=== PATIENT | female | born 1980 | race Caucasian/White ===

== ENCOUNTER 2016-10-17 10:21 | Emergency (ER) | payer MEDICAID ==
[2016-10-17 10:25] VITALS: BP 116/83
[2016-10-17] MEDS ORDERED: Acetaminophen 325 MG Tab PO ONE (10:42)
--- NOTE | 2016-10-17 10:58 | EDM.PDOC ---
ED HPI GENERAL MEDICAL PROBLEM - General Chief Complaint: General Stated Complaint: "thought she was going to passout" Time Seen by Provider: 10/17/16 10:40 Source of Information: Reports: Patient History Limitations: Reports: No Limitations - History of Present Illness INITIAL COMMENTS - FREE TEXT/NARRATIVE: patient states she has a headache and doesn't feel well. Mother states this has happened a few times when she went to denominational. Onset: Today, Sudden Duration: Minutes: Location: Reports: Head Severity: Mild Improves with: Reports: None Worsens with: Reports: None Associated Symptoms: Reports: No Other Symptoms Treatments CASING BUILDER: Reports: Acetaminophen Headache Pain Score (Numeric/FACES): 7 - Related Data Allergies Allergy/AdvReac Type Severity Reaction Status Date / Time loratadine [From Claritin] Allergy Disorientat Verified 10/17/16 10:25 ion Home Meds: Home Meds Cholecalciferol (Vitamin D3) [Vitamin D3] 2,000 mg PO DAILY 03/04/14 [History] Levothyroxine [Synthroid] 50 mcg PO DAILY 03/04/14 [History] Pedi Multivit #22/Vit D3/Vit K [Multivitamins Chewables Tablet] 2 tab.chew PO DAILY 03/04/14 [History] Past Medical History HEENT History: Reports: Impaired Vision Cardiovascular History: Reports: None Gastrointestinal History: Reports: Other (See Below) Other Gastrointestinal History: questioning gallbladder issues. Genitourinary History: Reports: UTI, Recurrent Neurological History: Reports: Other (See Below) Other Neuro History: possible hx of seizures. Psychiatric History: Reports: Developmental Delay Endocrine/Metabolic History: Reports: Hypothyroidism, Obesity/BMI 30+ Dermatologic History: Reports: Other (See Below) Other Dermatologic History: susceptible to boils - Past Surgical History Cardiovascular Surgical History: Reports: Other (See Below) Other Cardiovascular Surgeries/Procedures: surgery to repair septal defect at age 12 Female Surgical History: Reports: None Social & Family History - Family History Family Medical History: Noncontributory - Tobacco Use Smoking Status *Q: Never Smoker - Alcohol Use Days Per Week of Alcohol Use: 0 - Recreational Drug Use Recreational Drug Use: No ED ROS GENERAL - Review of Systems Review Of Systems: See Below Constitutional: Reports: No Symptoms, Weakness, Fatigue HEENT: Reports: No Symptoms Respiratory: Reports: No Symptoms Cardiovascular: Reports: No Symptoms GI/Abdominal: Reports: Nausea Skin: Reports: No Symptoms Neurological: Reports: No Symptoms Psychiatric: Reports: No Symptoms Hematologic/Lymphatic: Reports: No Symptoms Immunologic: Reports: No Symptoms ED EXAM, GENERAL - Physical Exam Exam: See Below Exam Limited By: No Limitations General Appearance: Alert, WD/WN, No Apparent Distress Ears: Normal External Exam Nose: Normal Inspection Throat/Mouth: Normal Inspection Head: Atraumatic, Normocephalic Neck: Normal Inspection Respiratory/Chest: No Respiratory Distress, Lungs Clear Cardiovascular: Normal Peripheral Pulses GI/Abdominal: Normal Bowel Sounds (Female) Exam: Normal External Exam Back Exam: Normal Inspection Extremities: Normal Inspection Neurological: Alert, Oriented Psychiatric: Anxious Skin Exam: Warm, Dry, Intact Course - Vital Signs Last Recorded V/S: Last Vital Signs Temp 98.3 F 10/17/16 10:22 Pulse 79 10/17/16 10:22 Resp 18 10/17/16 10:22 BP 116/83 10/17/16 10:22 Pulse Ox 96 10/17/16 10:22 - Orders/Labs/Meds Meds: Medications Discontinued Medications Generic Name Dose Route Start Last Admin Trade Name Caryl PRN Reason Stop Dose Admin Acetaminophen 650 mg 10/17/16 10:42 10/17/16 10:45 Tylenol PO 10/17/16 10:43 650 mg NOW ONE Administration Departure - Departure Time of Disposition: 10:57 Disposition: Home, Self-Care 01 Condition: Good Clinical Impression: Headache - Discharge Information Forms: ED Department Discharge Additional Instructions: Take Tylenol as needed. follow up with your regular doctor.
== END 2016-10-17 11:02 | disposition home or self-care (01) ==
LOC: CC.ED 10:21
DX: R51 Headache (principal); H54.7 Unspecified visual loss; E66.9 Obesity, unspecified; E03.9 Hypothyroidism, unspecified; Z79.899 Other long term (current) drug therapy
CPT/HCPCS: 99283; A9270

== ENCOUNTER 2017-05-19 21:30 | Emergency (ER) | payer MEDICAID ==
--- NOTE | 2017-05-19 22:04 | EDM.PDOC ---
ED HPI GENERAL MEDICAL PROBLEM - General Chief Complaint: Lower Extremity Injury/Pain Stated Complaint: "Fell and hurt my right ankle" Time Seen by Provider: 05/19/17 21:30 Source of Information: Reports: Patient, EMS, Family, RN History Limitations: Reports: No Limitations - History of Present Illness INITIAL COMMENTS - FREE TEXT/NARRATIVE: States that she was jumping up and down excited about the ball game that was on and she twisted her ankle falling to the ground. "I heard a crack" Has pain in the distal right ankle. Has not been able to bear weight on it since. No other injury noted. Onset: Today Location: Reports: Lower Extremity, Right Quality: Reports: Throbbing Improves with: Reports: Immobilization Worsens with: Reports: Movement Associated Symptoms: Reports: No Other Symptoms - Related Data Allergies Allergy/AdvReac Type Severity Reaction Status Date / Time loratadine [From Claritin] Allergy Disorientat Verified 05/19/17 22:28 ion Home Meds: Home Meds Cholecalciferol (Vitamin D3) [Vitamin D3] 2,000 mg PO DAILY 03/04/14 [History] Levothyroxine [Synthroid] 50 mcg PO DAILY 03/04/14 [History] Pedi Multivit #22/Vit D3/Vit K [Multivitamins Chewables Tablet] 2 tab.chew PO DAILY 03/04/14 [History] Past Medical History HEENT History: Reports: Impaired Vision Cardiovascular History: Reports: None Gastrointestinal History: Reports: Other (See Below) Other Gastrointestinal History: questioning gallbladder issues. Genitourinary History: Reports: UTI, Recurrent Neurological History: Reports: Other (See Below) Other Neuro History: possible hx of seizures. Psychiatric History: Reports: Developmental Delay Endocrine/Metabolic History: Reports: Hypothyroidism, Obesity/BMI 30+ Dermatologic History: Reports: Other (See Below) Other Dermatologic History: susceptible to boils - Past Surgical History Cardiovascular Surgical History: Reports: Other (See Below) Other Cardiovascular Surgeries/Procedures: surgery to repair septal defect at age 12 Female Surgical History: Reports: None Social & Family History - Family History Family Medical History: Noncontributory - Tobacco Use Smoking Status *Q: Never Smoker - Alcohol Use Days Per Week of Alcohol Use: 0 - Recreational Drug Use Recreational Drug Use: No - Living Situation & Occupation Living situation: Reports: Single, Alone Occupation: Disabled Review of Systems - Review of Systems Review Of Systems: See Below Constitutional: Reports: No Symptoms Eyes: Reports: No Symptoms Ears: Reports: No Symptoms Nose: Reports: No Symptoms Mouth/Throat: Reports: No Symptoms Respiratory: Reports: No Symptoms Cardiovascular: Reports: No Symptoms GI/Abdominal: Reports: No Symptoms Musculoskeletal: Reports: Leg Pain Skin: Denies: Bruising, Wound Neurological: Reports: No Symptoms ED EXAM, GENERAL - Physical Exam Exam: See Below Exam Limited By: No Limitations General Appearance: Alert, Moderate Distress Eye Exam: Bilateral Eye: PERRL Ears: Normal External Exam, Normal Canal, Normal TMs Ear Exam: Bilateral Ear: TM normal Nose: Normal Inspection Throat/Mouth: Normal Inspection, Normal Oropharynx, Normal Voice, No Airway Compromise Head: Atraumatic, Normocephalic Neck: Normal Inspection, Supple, Non-Tender Respiratory/Chest: No Respiratory Distress, Lungs Clear Cardiovascular: Normal Peripheral Pulses, Regular Rate, Rhythm, No Edema GI/Abdominal: Normal Bowel Sounds, Soft, Non-Tender, No Organomegaly Extremities: Normal Range of Motion (of the left leg.), No Pedal Edema, Normal Capillary Refill, Other (deformity noted of the right distal lower extremity. Good pulses and sensation noted. Does have increase pain to the area with any movment.) Neurological: Alert, Oriented Skin Exam: Warm, Dry, Intact Course - Orders/Labs/Meds Orders: Active Orders 24 hr Category Date Time Status Ankle Min 3V Rt [CR] Routine Exams 05/19/17 Taken - Re-Assessments/Exams Free Text/Narrative Re-Assessment/Exam: 05/19/17 22:[address] Urban acute care nurse practitioner for orthopedics at [facility]. He did accept in transfer. Will transfer BLS With IV of LR at 50 ml, NPO, and leg splinted in neutral position. Will be given Fentanyl 50 mcg IM prior to transfer. Departure - Departure Time of Disposition: 22:53 Disposition: DC/Tfer to Acute Hospital 02 Condition: Good Clinical Impression: Fracture of tibia with fibula, closed Qualifiers: Encounter type: initial encounter Laterality: right Qualified Code(s): S82.201A - Unspecified fracture of shaft of right tibia, initial encounter for closed fracture; S82.401A - Unspecified fracture of shaft of right fibula, initial encounter for closed fracture; S82.401A - Unspecified fracture of shaft of right fibula, initial encounter for closed fracture - Discharge Information Forms: ED Department Discharge Additional Instructions: NPO LR at 50 ml hour Keep leg elevated Transfer BLS to [facility] with Dr. Urban accepting. - Problem List & Annotations (1) Fracture of tibia with fibula, closed SNOMED Code(s): 748398603 Code(s): S82.209A - UNSP FRACTURE OF SHAFT OF UNSP TIBIA, INIT FOR CLOS FX; S82.409A - UNSP FRACTURE OF SHAFT OF UNSP FIBULA, INIT FOR CLOS FX Status: Acute Priority: High Qualifiers: Encounter type: initial encounter Laterality: right Qualified Code(s): S82.201A - Unspecified fracture of shaft of right tibia, initial encounter for closed fracture; S82.401A - Unspecified fracture of shaft of right fibula, initial encounter for closed fracture; S82.401A - Unspecified fracture of shaft of right fibula, initial encounter for closed fracture - Problem List Review Problem List Initiated/Reviewed/Updated: Yes - My Orders Last 24 Hours: My Active Orders 05/19/17 Ankle Min 3V Rt [CR] Routine - Assessment/Plan Last 24 Hours: My Active Orders 05/19/17 Ankle Min 3V Rt [CR] Routine Plan: Benefits of transfer include specialty care of orthopedics and surgery. Risks of staying would include increase in pain, possible permanent disability, and deformity. Pt and Dad both voice understanding and desire to transfer.
[2017-05-19] MEDS ORDERED: fentaNYL 100 MCG/2 ML SDV IM ONE (22:36)
[2017-05-19] MEDS ORDERED: Lactated Ringers 1,000 ML IV SCH (22:45)
[2017-05-19 23:29] VITALS: BP 142/82
== END 2017-05-19 23:15 ==
LOC: CC.ED 21:30
DX: S82.201A Unspecified fracture of shaft of right tibia, initial encounter for closed fracture (principal); S82.401A Unspecified fracture of shaft of right fibula, initial encounter for closed fracture
CPT/HCPCS: 73610; 96365; 96372; 99284; J3010; J7120; 29505

== ENCOUNTER 2017-05-26 11:35 | Inpatient (IN) | payer MEDICAID ==
[2017-05-26] MEDS ORDERED: FLU Vacc QS 2017-18 (36mos UP)/PF 60 MCG/0.5 ML Syringe IM ONE (14:12)
--- NOTE | 2017-05-26 14:51 | PCM.HP ---
H&P History of Present Illness - General Date of Service: 05/26/17 Admit Problem/Dx: Admission Diagnosis/Problem Admission Diagnosis/Problem Fracture of distal end of tibia Source of Information: Patient, Family, Old Records History Limitations: Reports: No Limitations - History of Present Illness Initial Comments - Free Text/Narative: Irina is a 36 year old female who is admitted to swing bed. She had a fall at home on the evening of 05/19/2017 . She was seen in the ED here in [place] and found to have a closed fracture of her right tibia and fibula. She was transferred to [facility] in [place]. At time of admission she is 6 days status post right ORIF of tib/fib fracture. She did have some respiratory issues post operatively and was found to have some congestive heart failure. She was treated with IV lasix, which has since been discontinued. She has been breathing without difficulty. No longer feels short of breath. They had noticed she was requiring oxygen at night. Patient had continuos O2 sat monitoring the night prior to discharge and did not require any oxygen. They were concerned there may be a component of PITO and recommend OP sleep study. Her pain was well controlled with Tylenol at time of discharge from [facility]. She is to be nonweight bearing for ~ 8-12 weeks, depending on follow up examination by her orthopedic doctor. She is admitted to swing bed for continued physical therapy. Symptom Onset Date: 05/19/17 Symptom Onset Time: 21:30 Location: Reports: Lower Extremity, Right Improves with: Reports: Medication Worsens with: Reports: Movement Associated Symptoms: Reports: No Other Symptoms. Denies: Fever/Chills Right Lower Leg Pain Score (Numeric/FACES): 5 - Related Data Allergies/Adverse Reactions: Allergies Allergy/AdvReac Type Severity Reaction Status Date / Time loratadine [From Claritin] Allergy Disorientat Verified 05/26/17 11:45 ion Home Medications: Home Meds Cholecalciferol (Vitamin D3) [Vitamin D3] 2,000 mg PO DAILY 03/04/14 [History] Levothyroxine [Synthroid] 88 mcg PO ACBREAKFAST 05/26/17 [History] Multivitamin [Gummi Bear Multivitamin] 1 each PO DAILY 05/26/17 [History] Past Medical History HEENT History: Reports: Impaired Vision Cardiovascular History: Reports: None Gastrointestinal History: Reports: Other (See Below) Other Gastrointestinal History: questioning gallbladder issues. Genitourinary History: Reports: UTI, Recurrent Neurological History: Reports: Other (See Below) Other Neuro History: possible hx of seizures. Psychiatric History: Reports: Developmental Delay Other Psychiatric History: Downs syndrome Endocrine/Metabolic History: Reports: Hypothyroidism, Obesity/BMI 30+ Dermatologic History: Reports: Other (See Below) Other Dermatologic History: susceptible to boils - Past Surgical History Cardiovascular Surgical History: Reports: Other (See Below) Other Cardiovascular Surgeries/Procedures: surgery to repair septal defect at age 12 Female Surgical History: Reports: None Social & Family History - Family History Family Medical History: Noncontributory - Tobacco Use Smoking Status *Q: Never Smoker Second Hand Smoke Exposure: No - Alcohol Use Days Per Week of Alcohol Use: 0 - Recreational Drug Use Recreational Drug Use: No - Living Situation & Occupation Living situation: Reports: Single, Alone Occupation: Disabled H&P Review of Systems - Review of Systems: Review Of Systems: ROS reveals no pertinent complaints other than HPI. General: Reports: No Symptoms. Denies: Fever, Chills, Weakness, Fatigue Pulmonary: Reports: No Symptoms. Denies: Shortness of Breath, Cough, Sputum Cardiovascular: Reports: No Symptoms Gastrointestinal: Reports: No Symptoms Genitourinary: Reports: No Symptoms, Other (recently had Krishnan removed) Musculoskeletal: Reports: Leg Pain (right) Skin: Reports: No Symptoms Psychiatric: Reports: No Symptoms Neurological: Reports: No Symptoms Hematologic/Lymphatic: Reports: No Symptoms Immunologic: Reports: No Symptoms Exam - Exam Exam: See Below - Vital Signs Weight: 216 lb 1.6 oz - Exam Quality Assessment: DVT Prophylaxis (aspirin BID) General: Alert, Oriented, 4 Neck: Supple, Trachea Midline, 2 Lungs: Clear to Auscultation, Normal Respiratory Effort Cardiovascular: Regular Rate, Regular Rhythm GI/Abdominal Exam: Normal Bowel Sounds, Soft, Non-Tender, No Organomegaly, No Distention, No Abnormal Bruit, No Mass, Pelvis Stable Extremities: Normal Inspection, Normal Capillary Refill, Leg Pain, Other (right leg splinted, good CMS, able to move toes) Skin: Warm, Dry, Intact Neurological: Cranial Nerves Intact Neuro Extensive - Mental Status: Alert, Oriented x3, Normal Mood/Affect, Normal Cognition Psychiatric: Alert, Normal Affect, Normal Mood - Patient Data Lab Results Last 24 hrs: Laboratory Results - last 24 hr 05/26/17 Range/Units 14:20 WBC 7.9 (5.0-10.0) 10^3/uL RBC 3.92 L (4.00-5.50) 10^6/uL Hgb 11.8 L (12.0-16.0) g/dL Hct 38.1 (37.0-47.0) % MCV 97.2 H (82.0-94.0) fL MCH 30.1 (27.0-32.0) pg MCHC 31.0 L (33.0-38.0) g/dL RDW Coeff of Rodrick 15.0 (11.0-15.0) % Plt Count 474 H (150-400) 10^3/uL Neut % (Auto) 67.9 (35-85) % Lymph % (Auto) 21.6 (10-55) % Clinch % (Auto) 6.7 (0-16) % Eos % (Auto) 2.9 (0-5) % Baso % (Auto) 0.9 (0-3) % Neut # (Auto) 5.37 (1.80-7.00) 10^3/uL Lymph # (Auto) 1.71 (1.00-4.80) 10^3/uL Clinch # (Auto) 0.53 (0.00-0.80) 10^3/uL Eos # (Auto) 0.23 (0.00-0.45) 10^3/uL Baso # (Auto) 0.07 10^3/uL Result Diagrams: 05/26/17 14:20 05/26/17 14:20 *Q Meaningful Use (ADM) - VTE *Q VTE Criteria *Q: - Stroke *Q Stroke Criteria *Q: - AMI *Q AMI Criteria *Q: - Problem List (1) Down syndrome SNOMED Code(s): 25096330 ICD Code: Q90.9 - DOWN SYNDROME, UNSPECIFIED Status: Chronic Current Visit: Yes (2) Hypothyroidism SNOMED Code(s): 23272360 ICD Code: E03.9 - HYPOTHYROIDISM, UNSPECIFIED Status: Chronic Current Visit: Yes Qualifiers: Hypothyroidism type: unspecified Qualified Code(s): E03.9 - Hypothyroidism , unspecified (3) Fracture of tibia with fibula, closed SNOMED Code(s): 096878756 ICD Code: S82.209A - UNSP FRACTURE OF SHAFT OF UNSP TIBIA, INIT FOR CLOS FX; S82.409A - UNSP FRACTURE OF SHAFT OF UNSP FIBULA, INIT FOR CLOS FX Status: Acute Priority: High Current Visit: No Qualifiers: Encounter type: initial encounter Laterality: right Qualified Code(s): S82.201A - Unspecified fracture of shaft of right tibia, initial encounter for closed fracture; S82.401A - Unspecified fracture of shaft of right fibula, initial encounter for closed fracture; S82.401A - Unspecified fracture of shaft of right fibula, initial encounter for closed fracture Problem List Initiated/Reviewed/Updated: Yes Orders Last 24hrs: Active Orders 24 hr Category Date Time Status Patient Status [ADT] Routine ADT 05/26/17 14:03 Active Oxygen Therapy [RC] .PRN Care 05/26/17 14:03 Active Up With Assistance [RC] .PRN Care 05/26/17 14:03 Active Vital Signs [RC] 0800,2000 Care 05/26/17 14:03 Active PT Evaluation and Treatment [CONS] Routine Cons 05/26/17 14:03 Active Regular Diet [DIET] Diet 05/26/17 Dinner Active BASIC METABOLIC PANEL,BMP [CHEM] Routine Lab 05/26/17 14:20 Received MAGNESIUM [CHEM] Routine Lab 05/26/17 14:20 Received TSH REFLEX TO FREE T4 [CHEM] Routine Lab 05/26/17 14:20 Received UA W/MICROSCOPIC [URIN] Routine Lab 05/30/17 05:00 Uncollected Aspirin Med 05/26/17 20:00 Active 81 mg PO BID Cholecalciferol (Vitamin D3) [Vitamin D3] Med 05/27/17 08:00 Active 2,000 units PO DAILY Levothyroxine [Synthroid] Med 05/27/17 07:00 Active 88 mcg PO ACBREAKFAST traMADol [Ultram] Med 05/26/17 14:20 Active 50 mg PO Q6H PRN Weight bearing status [OM.PC] Routine Oth 05/26/17 14:18 Ordered Resuscitation Status Routine Resus Stat 05/26/17 14:03 Ordered Medication Orders Aspirin (Aspirin) 81 mg PO BID ANNA Cholecalciferol (Vitamin D3) 2,000 units PO DAILY ANNA Levothyroxine Sodium (Synthroid) 88 mcg PO ACBREAKFAST ANNA Tramadol HCl (Ultram) 50 mg PO Q6H PRN PRN Reason: Pain Assessment/Plan Comment:: Labs ordered at admit 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 Will get iron, TIBC, vit B12, and folate. TSH 10.75. Free T4 0.9. Will increase Synthroid dose to 100 mcg/day. Was currently taking 88 mcg/day. TSH last checked in August 2016 WNL. Aspirin BID for DVT prophylaxis. NWB to RLE. Ice and elevate as much as possible. Tylenol or Tramadol as needed for pain. Physical therapy referral
[2017-05-26 15:03] LABS: CHLORIDE,CL 99 mEq/L (98-106); SODIUM,NA 138 mEq/L (136-145)
[2017-05-26] MEDS: Aspirin 81 MG Tab.Chew PO SCH (19:54)
[2017-05-26] MEDS: traMADol 50 MG Tab PO PRN (19:58)
[2017-05-27] MEDS ORDERED: Levothyroxine 88 MCG Tab PO SCH (07:00)
[2017-05-27] MEDS: Cholecalciferol (Vitamin D3) 1,000 Unit Tab PO SCH (07:45)
[2017-05-27] MEDS: Aspirin 81 MG Tab.Chew PO SCH ×2 (07:46→19:51)
[2017-05-27] MEDS: traMADol 50 MG Tab PO PRN (07:46)
[2017-05-27] MEDS: Acetaminophen 500 MG Tab PO PRN ×2 (15:13→20:55)
[2017-05-28] MEDS: Levothyroxine 100 MCG Tab PO SCH (06:22)
[2017-05-28] MEDS: Acetaminophen 500 MG Tab PO PRN ×3 (06:34→18:50)
[2017-05-28] MEDS: Aspirin 81 MG Tab.Chew PO SCH ×2 (07:42→19:29)
[2017-05-28] MEDS: Cholecalciferol (Vitamin D3) 1,000 Unit Tab PO SCH (07:42)
[2017-05-29] MEDS: Acetaminophen 500 MG Tab PO PRN ×3 (02:33→17:47)
[2017-05-29] MEDS: Levothyroxine 100 MCG Tab PO SCH (06:55)
[2017-05-29] MEDS: Cholecalciferol (Vitamin D3) 1,000 Unit Tab PO SCH (08:00)
[2017-05-29] MEDS: Aspirin 81 MG Tab.Chew PO SCH ×2 (08:00→20:02)
[2017-05-29] MEDS ORDERED: Morphine 4 MG/ML Syringe IM ONE (13:09)
[2017-05-29] MEDS ORDERED: Ondansetron 4 MG Tab.DIS PO ONE (13:11)
[2017-05-30] MEDS: Acetaminophen 500 MG Tab PO PRN ×3 (00:54→18:30)
[2017-05-30] MEDS: Cholecalciferol (Vitamin D3) 1,000 Unit Tab PO SCH (07:41)
[2017-05-30] MEDS: Aspirin 81 MG Tab.Chew PO SCH ×2 (07:41→19:42)
[2017-05-30] MEDS: Levothyroxine 100 MCG Tab PO SCH (07:42)
[2017-05-31] MEDS: Cholecalciferol (Vitamin D3) 1,000 Unit Tab PO SCH (08:10)
[2017-05-31] MEDS: Levothyroxine 100 MCG Tab PO SCH (08:10)
[2017-05-31] MEDS: Acetaminophen 500 MG Tab PO PRN ×3 (08:10→20:04)
[2017-05-31] MEDS: Aspirin 81 MG Tab.Chew PO SCH ×2 (08:10→20:04)
[2017-05-31] MEDS ORDERED: traMADol 50 MG Tab PO ONE (17:30)
[2017-06-01] MEDS: Acetaminophen 500 MG Tab PO PRN ×4 (02:12→21:51)
[2017-06-01] MEDS: Levothyroxine 100 MCG Tab PO SCH (08:13)
[2017-06-01] MEDS: Aspirin 81 MG Tab.Chew PO SCH ×2 (08:14→19:47)
[2017-06-01] MEDS: Cholecalciferol (Vitamin D3) 1,000 Unit Tab PO SCH (08:14)
[2017-06-01] MEDS: traMADol 50 MG Tab PO PRN ×2 (11:27→18:30)
[2017-06-02] MEDS: traMADol 50 MG Tab PO PRN ×3 (01:29→17:20)
[2017-06-02] MEDS: Levothyroxine 100 MCG Tab PO SCH (06:56)
[2017-06-02] MEDS: Aspirin 81 MG Tab.Chew PO SCH ×2 (08:09→20:32)
[2017-06-02] MEDS: Cholecalciferol (Vitamin D3) 1,000 Unit Tab PO SCH (08:09)
[2017-06-02] MEDS: Acetaminophen 500 MG Tab PO PRN (16:22)
[2017-06-03] MEDS: traMADol 50 MG Tab PO PRN ×4 (00:20→22:01)
[2017-06-03] MEDS: Levothyroxine 100 MCG Tab PO SCH (06:14)
[2017-06-03] MEDS: Cholecalciferol (Vitamin D3) 1,000 Unit Tab PO SCH (07:26)
[2017-06-03] MEDS: Aspirin 81 MG Tab.Chew PO SCH ×2 (07:26→20:22)
--- NOTE | 2017-06-03 09:25 | PN ---
DATE: 06/03/2017 S: July Bebeto is in with an open reduction of fractures of her right ankle, having some chest pain and shortness of breath. O: On examination, NECK: Supple. CHEST: Clear. CARDIAC: Sounds are good. ASSESSMENT: CHEST PAIN, SHORTNESS OF BREATH. QUESTION POSSIBILITY OF PULMONARY EMBOLI. WE WILL GET A D-DIMER ON HER WHICH PROBABLY IS GOING TO BE HIGH AND WE WILL HAVE TO GET A CTA. MASON/NICOLE /[id number]
[2017-06-03] MEDS ORDERED: Iopamidol 755 Mg/ML 100 ML Bottle IVPUSH ONE (10:44)
[2017-06-03] MEDS ORDERED: Azithromycin 250 MG Tab PO ONE (14:52)
[2017-06-03] MEDS: Acetaminophen 500 MG Tab PO PRN (19:04)
[2017-06-04] MEDS: Acetaminophen 500 MG Tab PO PRN ×3 (01:24→19:23)
[2017-06-04] MEDS: Aspirin 81 MG Tab.Chew PO SCH ×2 (08:04→19:23)
[2017-06-04] MEDS: Cholecalciferol (Vitamin D3) 1,000 Unit Tab PO SCH (08:04)
[2017-06-04] MEDS: Levothyroxine 100 MCG Tab PO SCH (08:04)
[2017-06-04] MEDS: traMADol 50 MG Tab PO PRN ×2 (10:31→22:18)
[2017-06-04] MEDS: Azithromycin 250 MG Tab PO SCH (15:47)
[2017-06-05] MEDS: Cholecalciferol (Vitamin D3) 1,000 Unit Tab PO SCH (08:01)
[2017-06-05] MEDS: Aspirin 81 MG Tab.Chew PO SCH ×2 (08:01→19:16)
[2017-06-05] MEDS: Acetaminophen 500 MG Tab PO PRN ×2 (08:01→18:01)
[2017-06-05] MEDS: Levothyroxine 100 MCG Tab PO SCH (08:04)
[2017-06-05] MEDS: Azithromycin 250 MG Tab PO SCH (15:32)
[2017-06-05] MEDS: traMADol 50 MG Tab PO PRN (23:30)
[2017-06-06] MEDS: Levothyroxine 100 MCG Tab PO SCH (06:49)
[2017-06-06] MEDS: Aspirin 81 MG Tab.Chew PO SCH ×2 (07:50→19:53)
[2017-06-06] MEDS: Cholecalciferol (Vitamin D3) 1,000 Unit Tab PO SCH (07:50)
--- NOTE | 2017-06-06 08:34 | PN ---
DATE: 06/04/2017July Tate with short of breath, cough, little bit of chest pains. Did a D- dimer that was elevated. So I went ahead and did a CTA of the chest. No blood clots. A question of a little bit inflammation, bronchiolitis probably, so put her on a Z-Cody. MASON/NICOLE /[id number]
--- NOTE | 2017-06-06 10:11 | PCM.SN ---
- Free Text/Narrative Note: Nursing staff report patient has been crying a lot at night and not sleeping well. Discussed with Dr. Zimmerman. Will start patient on Zoloft 25 mg PO Q HS.
[2017-06-06] MEDS: Acetaminophen 500 MG Tab PO PRN ×2 (10:44→18:23)
[2017-06-06] MEDS: traMADol 50 MG Tab PO PRN ×2 (14:48→22:04)
[2017-06-06] MEDS: Azithromycin 250 MG Tab PO SCH (14:49)
[2017-06-06] MEDS: Sertraline 25 MG Tab PO SCH (19:53)
[2017-06-07] MEDS: Aspirin 81 MG Tab.Chew PO SCH ×2 (07:51→19:33)
[2017-06-07] MEDS: Levothyroxine 100 MCG Tab PO SCH (07:51)
[2017-06-07] MEDS: Cholecalciferol (Vitamin D3) 1,000 Unit Tab PO SCH (07:51)
[2017-06-07] MEDS: Acetaminophen 500 MG Tab PO PRN (09:04)
[2017-06-07] MEDS: traMADol 50 MG Tab PO PRN ×2 (12:48→18:29)
[2017-06-07] MEDS: Azithromycin 250 MG Tab PO SCH (15:09)
[2017-06-07] MEDS: Sertraline 25 MG Tab PO SCH (19:33)
[2017-06-08] MEDS: Acetaminophen 500 MG Tab PO PRN ×3 (00:21→23:03)
[2017-06-08] MEDS: Levothyroxine 100 MCG Tab PO SCH (06:04)
[2017-06-08] MEDS: Aspirin 81 MG Tab.Chew PO SCH ×2 (07:35→19:10)
[2017-06-08] MEDS: Cholecalciferol (Vitamin D3) 1,000 Unit Tab PO SCH (07:35)
[2017-06-08] MEDS: traMADol 50 MG Tab PO PRN ×2 (07:35→16:56)
[2017-06-08] MEDS: Sertraline 25 MG Tab PO SCH (19:11)
[2017-06-09] MEDS: Levothyroxine 100 MCG Tab PO SCH (06:34)
[2017-06-09] MEDS: Cholecalciferol (Vitamin D3) 1,000 Unit Tab PO SCH (07:21)
[2017-06-09] MEDS: Aspirin 81 MG Tab.Chew PO SCH ×2 (07:21→19:22)
[2017-06-09] MEDS: Acetaminophen 500 MG Tab PO PRN ×2 (07:23→22:16)
--- NOTE | 2017-06-09 08:10 | PCM.PN ---
- General Info Date of Service: 06/09/17 Admission Dx/Problem (Free Text): Admission Diagnosis/Problem Admission Diagnosis/Problem Fracture of distal end of tibia Subjective Update: Irina is a 36 year old female who was admitted to swing bed on 05/26/2017. She is status post ORIF of right tib/fib. She is to be non-weight bearing for a total duration of 12 weeks. She has had a rather uneventful stay since admission. She did complain of some chest tightness and cough. D-dimer was elevated, so she underwent Chest CTA. Chest CTA was negative for pulmonary emboli, but did show some bronchiolar disease. Patient was treated with azithromax and her breathing seemed to improve. She also has been having some issues sleeping at night and has been increasingly tearful. She was recently started on Prozac. Nursing reports she has been sleeping somewhat better. At time of visit, patient reports she has been feeling well. Does report some continued pain in her right ankle. She has been taking Tramadol for this. She reports she is going for her follow up appointment with her orthopedic surgeon today to have her sutures removed. She denies any numbness or tingling. Cap refill is < 2 seconds in RLE. Functional Status: Reports: Pain Controlled, Tolerating Diet, Urinating. Denies : Ambulating, New Symptoms - Review of Systems General: Reports: No Symptoms. Denies: Fever, Weakness, Fatigue, Chills HEENT: Reports: No Symptoms Pulmonary: Reports: Shortness of Breath, Pleuritic Chest Pain, Cough. Denies: Sputum, Hemoptysis, Wheezing Cardiovascular: Reports: Dyspnea on Exertion. Denies: Chest Pain, Palpitations , Edema, Lightheadedness Gastrointestinal: Reports: No Symptoms. Denies: Abdominal Pain, Constipation, Decreased Appetite, Diarrhea, Hematochezia, Melena, Nausea, Vomiting Genitourinary: Reports: No Symptoms Musculoskeletal: Reports: Leg Pain, Foot Pain Skin: Reports: No Symptoms Neurological: Reports: No Symptoms. Denies: Confusion, Dizziness, Headache, Weakness - Patient Data Vitals - Most Recent: Last Vital Signs Temp 97.7 F 06/09/17 07:24 Pulse 74 06/09/17 07:24 Resp 18 06/09/17 07:24 BP 103/59 L 06/09/17 07:24 Pulse Ox 92 L 06/09/17 07:24 Weight - Most Recent: 213 lb 6.4 oz Med Orders - Current: Current Medications Acetaminophen (Tylenol Extra Strength) 1,000 mg PO Q6H PRN PRN Reason: Pain Last Admin: 06/09/17 07:23 Dose: 1,000 mg Aspirin (Aspirin) 81 mg PO BID [facility] Last Admin: 06/09/17 07:21 Dose: 81 mg Cholecalciferol (Vitamin D3) 2,000 units PO DAILY [facility] Last Admin: 06/09/17 07:21 Dose: 2,000 units Levothyroxine Sodium (Synthroid) 100 mcg PO 0700 [facility] Last Admin: 06/09/17 06:34 Dose: 100 mcg Sertraline HCl (Zoloft) 25 mg PO BEDTIME [facility] Last Admin: 06/08/17 19:11 Dose: 25 mg Tramadol HCl (Ultram) 25 mg PO Q6H PRN PRN Reason: Pain/Fever Last Admin: 06/08/17 16:56 Dose: 25 mg Discontinued Medications Azithromycin (Zithromax) 500 mg PO ONETIME ONE Stop: 06/03/17 14:53 Last Admin: 06/03/17 15:45 Dose: 500 mg Azithromycin (Zithromax) 250 mg PO DAILY@1500 [facility] Stop: 06/07/17 15:01 Last Admin: 06/07/17 15:09 Dose: 250 mg Influenza Virus Vaccine (Fluzone Quad [id number]) 60 mcg IM .ONCE ONE Stop: 05/26/17 14:13 Last Admin: 05/26/17 14:31 Dose: 60 mcg Iopamidol (Isovue-370 (76%)) 100 ml IVPUSH ONETIME ONE Stop: 06/03/17 10:45 Last Admin: 06/03/17 12:17 Dose: Not Given Levothyroxine Sodium (Synthroid) 88 mcg PO ACBREAKFAST [facility] Last Admin: 05/27/17 06:30 Dose: 88 mcg Morphine Sulfate (Morphine) 4 mg IM ONETIME ONE Stop: 05/29/17 13:10 Last Admin: 05/29/17 13:23 Dose: 4 mg Ondansetron HCl (Zofran Odt) 4 mg PO ONETIME ONE Stop: 05/29/17 13:12 Last Admin: 05/29/17 13:23 Dose: 4 mg Tramadol HCl (Ultram) 50 mg PO Q6H PRN PRN Reason: Pain Last Admin: 05/27/17 07:46 Dose: 50 mg Tramadol HCl (Ultram) 25 mg PO ONETIME ONE Stop: 05/31/17 17:31 Last Admin: 05/31/17 17:29 Dose: 25 mg - Exam Quality Assessment: DVT Prophylaxis (aspirin BID). No: Supplemental Oxygen General: Alert, Oriented HEENT: Pupils Equal, Pupils Reactive, EOMI, Mucous Membr. Moist/[place]upe Guerra Neck: Supple Lungs: Clear to Auscultation, Normal Respiratory Effort Cardiovascular: Regular Rate, Regular Rhythm GI/Abdominal Exam: Normal Bowel Sounds, Soft, Non-Tender, No Organomegaly, No Distention, No Abnormal Bruit, No Mass, Pelvis Stable Extremities: Normal Inspection, Normal Capillary Refill, Leg Pain (right surgical site), Limited Range of Motion (right LE, splinted). No: Increased Warmth Peripheral Pulses: 1+: Dorsalis Pedis (R) Skin: Warm, Dry, Intact Neurological: No New Focal Deficit Psy/Mental Status: Alert, Normal Affect, Normal Mood - Problem List & Annotations (1) Down syndrome SNOMED Code(s): 73071579 Code(s): Q90.9 - DOWN SYNDROME, UNSPECIFIED Status: Chronic Current Visit : Yes (2) Hypothyroidism SNOMED Code(s): 05627010 Code(s): E03.9 - HYPOTHYROIDISM, UNSPECIFIED Status: Chronic Current Visit: Yes Qualifiers: Hypothyroidism type: unspecified Qualified Code(s): E03.9 - Hypothyroidism , unspecified (3) Fracture of tibia with fibula, closed SNOMED Code(s): 953347754 Code(s): S82.209A - UNSP FRACTURE OF SHAFT OF UNSP TIBIA, INIT FOR CLOS FX; S82.409A - UNSP FRACTURE OF SHAFT OF UNSP FIBULA, INIT FOR CLOS FX Status: Acute Priority: High Current Visit: No Qualifiers: Encounter type: initial encounter Laterality: right Qualified Code(s): S82.201A - Unspecified fracture of shaft of right tibia, initial encounter for closed fracture; S82.401A - Unspecified fracture of shaft of right fibula, initial encounter for closed fracture; S82.401A - Unspecified fracture of shaft of right fibula, initial encounter for closed fracture - Problem List Review Problem List Initiated/Reviewed/Updated: Yes - Plan Plan:: This is a recertification visit. Patient must remain swing bed status as she will need to be non-weight bearing to her RLE. She will likely be switching to a Cam boot. She has down syndrome and may have difficulty comprehending non- weightbearing status. She will likely need to remain in swing bed for a total duration of 12 weeks, to allow for fracture/surgical site to heal completely. I estimate she will need to be here approximately another 10 weeks. She should be able to return home safely once she is able to bear weight on her RLE. Continue current cares. Continue with NWB status to RLE. PT following. Follow up as scheduled with orthopedics today.
[2017-06-09] MEDS: traMADol 50 MG Tab PO PRN ×2 (10:40→19:22)
[2017-06-09] MEDS: Sertraline 25 MG Tab PO SCH (19:22)
[2017-06-10] MEDS: Levothyroxine 100 MCG Tab PO SCH (06:41)
[2017-06-10] MEDS: traMADol 50 MG Tab PO PRN ×2 (07:40→22:47)
[2017-06-10] MEDS: Cholecalciferol (Vitamin D3) 1,000 Unit Tab PO SCH (07:40)
[2017-06-10] MEDS: Aspirin 81 MG Tab.Chew PO SCH ×2 (07:40→19:54)
[2017-06-10] MEDS: Acetaminophen 500 MG Tab PO PRN (16:46)
[2017-06-10] MEDS: Sertraline 25 MG Tab PO SCH (19:54)
[2017-06-11] MEDS: Levothyroxine 100 MCG Tab PO SCH (06:46)
[2017-06-11] MEDS: Cholecalciferol (Vitamin D3) 1,000 Unit Tab PO SCH (07:41)
[2017-06-11] MEDS: Aspirin 81 MG Tab.Chew PO SCH ×2 (07:41→19:56)
[2017-06-11] MEDS: traMADol 50 MG Tab PO PRN (16:22)
[2017-06-11] MEDS: Sertraline 25 MG Tab PO SCH (19:56)
[2017-06-11] MEDS: Acetaminophen 500 MG Tab PO PRN (19:56)
[2017-06-12] MEDS: traMADol 50 MG Tab PO PRN ×2 (01:30→17:51)
[2017-06-12] MEDS: Levothyroxine 100 MCG Tab PO SCH (06:52)
[2017-06-12] MEDS: Aspirin 81 MG Tab.Chew PO SCH ×2 (07:56→19:28)
[2017-06-12] MEDS: Cholecalciferol (Vitamin D3) 1,000 Unit Tab PO SCH (07:56)
[2017-06-12] MEDS: Acetaminophen 500 MG Tab PO PRN (15:12)
[2017-06-12] MEDS: Sertraline 25 MG Tab PO SCH (19:28)
[2017-06-13] MEDS: traMADol 50 MG Tab PO PRN (01:15)
[2017-06-13] MEDS: Levothyroxine 100 MCG Tab PO SCH (06:35)
[2017-06-13] MEDS: Aspirin 81 MG Tab.Chew PO SCH ×2 (07:27→19:38)
[2017-06-13] MEDS: Cholecalciferol (Vitamin D3) 1,000 Unit Tab PO SCH (07:27)
[2017-06-13] MEDS: Sertraline 25 MG Tab PO SCH (19:37)
[2017-06-14] MEDS: traMADol 50 MG Tab PO PRN ×2 (03:21→11:45)
[2017-06-14] MEDS: Levothyroxine 100 MCG Tab PO SCH (06:37)
[2017-06-14] MEDS: Aspirin 81 MG Tab.Chew PO SCH ×2 (08:04→20:35)
[2017-06-14] MEDS: Cholecalciferol (Vitamin D3) 1,000 Unit Tab PO SCH (08:04)
[2017-06-14] MEDS: Sertraline 25 MG Tab PO SCH (20:34)
[2017-06-15] MEDS: Levothyroxine 100 MCG Tab PO SCH (06:39)
[2017-06-15] MEDS: Cholecalciferol (Vitamin D3) 1,000 Unit Tab PO SCH (08:17)
[2017-06-15] MEDS: Aspirin 81 MG Tab.Chew PO SCH ×2 (08:17→19:44)
[2017-06-15] MEDS: Sertraline 25 MG Tab PO SCH (19:44)
[2017-06-15] MEDS: Acetaminophen 500 MG Tab PO PRN (19:45)
[2017-06-16] MEDS: traMADol 50 MG Tab PO PRN ×2 (00:29→20:46)
[2017-06-16] MEDS: Cholecalciferol (Vitamin D3) 1,000 Unit Tab PO SCH (08:00)
[2017-06-16] MEDS: Levothyroxine 100 MCG Tab PO SCH (08:00)
[2017-06-16] MEDS: Aspirin 81 MG Tab.Chew PO SCH ×2 (08:00→19:31)
[2017-06-16] MEDS: Sertraline 25 MG Tab PO SCH (19:31)
[2017-06-17] MEDS: Levothyroxine 100 MCG Tab PO SCH (06:48)
[2017-06-17] MEDS: Aspirin 81 MG Tab.Chew PO SCH ×2 (07:23→20:03)
[2017-06-17] MEDS: Cholecalciferol (Vitamin D3) 1,000 Unit Tab PO SCH (07:23)
[2017-06-17] MEDS: Sertraline 25 MG Tab PO SCH (20:03)
[2017-06-17] MEDS: Acetaminophen 500 MG Tab PO PRN (20:53)
[2017-06-18] MEDS: Levothyroxine 100 MCG Tab PO SCH (06:17)
[2017-06-18] MEDS: Cholecalciferol (Vitamin D3) 1,000 Unit Tab PO SCH (08:05)
[2017-06-18] MEDS: Aspirin 81 MG Tab.Chew PO SCH ×2 (08:05→19:55)
[2017-06-18] MEDS: Sertraline 25 MG Tab PO SCH (19:55)
[2017-06-19] MEDS: Acetaminophen 500 MG Tab PO PRN ×2 (00:34→19:46)
[2017-06-19] MEDS: Levothyroxine 100 MCG Tab PO SCH (07:00)
[2017-06-19] MEDS: Cholecalciferol (Vitamin D3) 1,000 Unit Tab PO SCH (07:56)
[2017-06-19] MEDS: Aspirin 81 MG Tab.Chew PO SCH ×2 (07:56→19:39)
[2017-06-19] MEDS: Sertraline 25 MG Tab PO SCH (19:39)
[2017-06-20] MEDS: Levothyroxine 100 MCG Tab PO SCH (07:45)
[2017-06-20] MEDS: Cholecalciferol (Vitamin D3) 1,000 Unit Tab PO SCH (07:45)
[2017-06-20] MEDS: Aspirin 81 MG Tab.Chew PO SCH ×2 (07:45→19:22)
[2017-06-20] MEDS: Acetaminophen 500 MG Tab PO PRN ×2 (15:49→21:41)
[2017-06-20] MEDS: Sertraline 25 MG Tab PO SCH (19:22)
[2017-06-21] MEDS: Levothyroxine 100 MCG Tab PO SCH (06:34)
[2017-06-21] MEDS: Cholecalciferol (Vitamin D3) 1,000 Unit Tab PO SCH (07:53)
[2017-06-21] MEDS: Aspirin 81 MG Tab.Chew PO SCH ×2 (07:53→19:33)
[2017-06-21] MEDS: Acetaminophen 500 MG Tab PO PRN ×2 (12:32→19:33)
[2017-06-21] MEDS: Sertraline 25 MG Tab PO SCH (19:33)
[2017-06-21] MEDS: traMADol 50 MG Tab PO PRN (22:53)
[2017-06-22] MEDS: Levothyroxine 100 MCG Tab PO SCH (06:26)
[2017-06-22] MEDS: Aspirin 81 MG Tab.Chew PO SCH ×2 (07:35→19:54)
[2017-06-22] MEDS: Cholecalciferol (Vitamin D3) 1,000 Unit Tab PO SCH (07:35)
[2017-06-22] MEDS: Acetaminophen 500 MG Tab PO PRN ×2 (10:34→23:16)
[2017-06-22] MEDS: Sertraline 25 MG Tab PO SCH (19:54)
[2017-06-23] MEDS: Levothyroxine 100 MCG Tab PO SCH (06:49)
[2017-06-23] MEDS: Cholecalciferol (Vitamin D3) 1,000 Unit Tab PO SCH (08:23)
[2017-06-23] MEDS: Aspirin 81 MG Tab.Chew PO SCH ×2 (08:23→20:17)
[2017-06-23] MEDS: Acetaminophen 500 MG Tab PO PRN (18:51)
[2017-06-23] MEDS: Sertraline 25 MG Tab PO SCH (20:17)
[2017-06-24] MEDS: Levothyroxine 100 MCG Tab PO SCH (07:05)
[2017-06-24] MEDS: Aspirin 81 MG Tab.Chew PO SCH ×2 (08:13→20:10)
[2017-06-24] MEDS: Cholecalciferol (Vitamin D3) 1,000 Unit Tab PO SCH (08:13)
--- NOTE | 2017-06-24 10:01 | PCM.PN ---
- General Info Date of Service: 06/24/17 Admission Dx/Problem (Free Text): Admission Diagnosis/Problem Admission Diagnosis/Problem Fracture of distal end of tibia Functional Status: Reports: Pain Controlled, Tolerating Diet, Urinating. Denies : Ambulating, New Symptoms - Review of Systems General: Reports: No Symptoms HEENT: Reports: No Symptoms Pulmonary: Reports: No Symptoms Cardiovascular: Reports: No Symptoms Gastrointestinal: Reports: Diarrhea Genitourinary: Reports: No Symptoms Musculoskeletal: Reports: Leg Pain Neurological: Reports: No Symptoms Psychiatric: Reports: No Symptoms - Patient Data Vitals - Most Recent: Last Vital Signs Temp 97.9 F 06/24/17 08:00 Pulse 86 06/24/17 08:00 Resp 20 06/24/17 08:00 BP 134/61 06/24/17 08:00 Pulse Ox 94 L 06/24/17 08:00 Weight - Most Recent: 217 lb Med Orders - Current: Current Medications Acetaminophen (Tylenol Extra Strength) 1,000 mg PO Q6H PRN PRN Reason: Pain Last Admin: 06/23/17 18:51 Dose: 1,000 mg Aspirin (Aspirin) 81 mg PO BID [facility] Last Admin: 06/24/17 08:13 Dose: 81 mg Cholecalciferol (Vitamin D3) 2,000 units PO DAILY [facility] Last Admin: 06/24/17 08:13 Dose: 2,000 units Levothyroxine Sodium (Synthroid) 100 mcg PO 0700 [facility] Last Admin: 06/24/17 07:05 Dose: 100 mcg Sertraline HCl (Zoloft) 25 mg PO BEDTIME [facility] Last Admin: 06/23/17 20:17 Dose: 25 mg Tramadol HCl (Ultram) 25 mg PO Q6H PRN PRN Reason: Pain/Fever Last Admin: 06/21/17 22:53 Dose: 25 mg Discontinued Medications Azithromycin (Zithromax) 500 mg PO ONETIME ONE Stop: 06/03/17 14:53 Last Admin: 06/03/17 15:45 Dose: 500 mg Azithromycin (Zithromax) 250 mg PO DAILY@1500 [facility] Stop: 06/07/17 15:01 Last Admin: 06/07/17 15:09 Dose: 250 mg Influenza Virus Vaccine (Fluzone Quad [id number]) 60 mcg IM .ONCE ONE Stop: 05/26/17 14:13 Last Admin: 05/26/17 14:31 Dose: 60 mcg Iopamidol (Isovue-370 (76%)) 100 ml IVPUSH ONETIME ONE Stop: 06/03/17 10:45 Last Admin: 06/03/17 12:17 Dose: Not Given Levothyroxine Sodium (Synthroid) 88 mcg PO ACBREAKFAST [facility] Last Admin: 05/27/17 06:30 Dose: 88 mcg Morphine Sulfate (Morphine) 4 mg IM ONETIME ONE Stop: 05/29/17 13:10 Last Admin: 05/29/17 13:23 Dose: 4 mg Ondansetron HCl (Zofran Odt) 4 mg PO ONETIME ONE Stop: 05/29/17 13:12 Last Admin: 05/29/17 13:23 Dose: 4 mg Tramadol HCl (Ultram) 50 mg PO Q6H PRN PRN Reason: Pain Last Admin: 05/27/17 07:46 Dose: 50 mg Tramadol HCl (Ultram) 25 mg PO ONETIME ONE Stop: 05/31/17 17:31 Last Admin: 05/31/17 17:29 Dose: 25 mg - Exam Quality Assessment: DVT Prophylaxis General: Alert, Oriented Neck: Supple Lungs: Clear to Auscultation, Normal Respiratory Effort Cardiovascular: Regular Rate, Regular Rhythm Extremities: Normal Inspection, Normal Range of Motion, Non-Tender, No Pedal Edema, Normal Capillary Refill, Leg Pain (boot in place) Skin: Warm, Dry, Intact Neurological: No New Focal Deficit Psy/Mental Status: Alert, Normal Affect, Normal Mood - Problem List & Annotations (1) Down syndrome SNOMED Code(s): 18155975 Code(s): Q90.9 - DOWN SYNDROME, UNSPECIFIED Status: Chronic Current Visit : Yes (2) Hypothyroidism SNOMED Code(s): 86091414 Code(s): E03.9 - HYPOTHYROIDISM, UNSPECIFIED Status: Chronic Current Visit: Yes Qualifiers: Hypothyroidism type: unspecified Qualified Code(s): E03.9 - Hypothyroidism , unspecified (3) Fracture of tibia with fibula, closed SNOMED Code(s): 799198995 Code(s): S82.209A - UNSP FRACTURE OF SHAFT OF UNSP TIBIA, INIT FOR CLOS FX; S82.409A - UNSP FRACTURE OF SHAFT OF UNSP FIBULA, INIT FOR CLOS FX Status: Acute Priority: High Current Visit: No Qualifiers: Encounter type: initial encounter Laterality: right Qualified Code(s): S82.201A - Unspecified fracture of shaft of right tibia, initial encounter for closed fracture; S82.401A - Unspecified fracture of shaft of right fibula, initial encounter for closed fracture; S82.401A - Unspecified fracture of shaft of right fibula, initial encounter for closed fracture - Problem List Review Problem List Initiated/Reviewed/Updated: Yes - Plan Plan:: This is a recertification visit. Patient must remain swing bed status as she will need to be non-weight bearing to her RLE. She has been switched to a CAm boot. She has down syndrome and may have difficulty comprehending non- weightbearing status. She has been doing well with NWB status. She will likely need to remain in swing bed for a total duration of 12 weeks, to allow for fracture/surgical site to heal completely. I estimate she will need to be here approximately another 8 weeks. She should be able to return home safely once she is able to bear weight on her RLE. Continue current cares. Continue with NWB status to RLE. PT following. Follow up as scheduled with orthopedics on August 04. Ortho recommendations per orthopedic surgery.
[2017-06-24] MEDS: Acetaminophen 500 MG Tab PO PRN (18:21)
[2017-06-24] MEDS: Sertraline 25 MG Tab PO SCH (20:10)
[2017-06-24] MEDS: traMADol 50 MG Tab PO PRN (23:35)
[2017-06-25] MEDS: Levothyroxine 100 MCG Tab PO SCH (07:11)
[2017-06-25] MEDS: Cholecalciferol (Vitamin D3) 1,000 Unit Tab PO SCH (08:20)
[2017-06-25] MEDS: Aspirin 81 MG Tab.Chew PO SCH ×2 (08:20→19:32)
[2017-06-25] MEDS: Acetaminophen 500 MG Tab PO PRN ×2 (14:22→20:45)
[2017-06-25] MEDS: Sertraline 25 MG Tab PO SCH (19:33)
[2017-06-26] MEDS: Levothyroxine 100 MCG Tab PO SCH (06:47)
[2017-06-26] MEDS: Aspirin 81 MG Tab.Chew PO SCH ×2 (07:23→19:40)
[2017-06-26] MEDS: Cholecalciferol (Vitamin D3) 1,000 Unit Tab PO SCH (07:23)
[2017-06-26] MEDS: Sertraline 25 MG Tab PO SCH (19:40)
[2017-06-26] MEDS: traMADol 50 MG Tab PO PRN (19:41)
[2017-06-27] MEDS: Acetaminophen 500 MG Tab PO PRN (01:42)
[2017-06-27] MEDS: Levothyroxine 100 MCG Tab PO SCH (07:03)
[2017-06-27] MEDS: Cholecalciferol (Vitamin D3) 1,000 Unit Tab PO SCH (08:10)
[2017-06-27] MEDS: Aspirin 81 MG Tab.Chew PO SCH ×2 (08:10→20:18)
[2017-06-27] MEDS: Sertraline 25 MG Tab PO SCH (20:19)
[2017-06-28] MEDS: Aspirin 81 MG Tab.Chew PO SCH ×2 (07:47→20:21)
[2017-06-28] MEDS: Cholecalciferol (Vitamin D3) 1,000 Unit Tab PO SCH (07:48)
[2017-06-28] MEDS: Levothyroxine 100 MCG Tab PO SCH (07:48)
[2017-06-28] MEDS: Acetaminophen 500 MG Tab PO PRN ×3 (07:52→20:37)
[2017-06-28] MEDS: Sertraline 25 MG Tab PO SCH (20:21)
[2017-06-29] MEDS: Levothyroxine 100 MCG Tab PO SCH (06:33)
[2017-06-29] MEDS: Cholecalciferol (Vitamin D3) 1,000 Unit Tab PO SCH (07:21)
[2017-06-29] MEDS: Aspirin 81 MG Tab.Chew PO SCH ×2 (07:21→19:17)
[2017-06-29] MEDS: Sertraline 25 MG Tab PO SCH (19:17)
[2017-06-30] MEDS: Acetaminophen 500 MG Tab PO PRN ×3 (00:01→22:55)
[2017-06-30] MEDS: Levothyroxine 100 MCG Tab PO SCH (06:39)
[2017-06-30] MEDS: Aspirin 81 MG Tab.Chew PO SCH ×2 (07:09→19:17)
[2017-06-30] MEDS: Cholecalciferol (Vitamin D3) 1,000 Unit Tab PO SCH (07:09)
[2017-06-30] MEDS: Sertraline 25 MG Tab PO SCH (19:17)
[2017-07-01] MEDS: Levothyroxine 100 MCG Tab PO SCH (06:10)
[2017-07-01] MEDS: Aspirin 81 MG Tab.Chew PO SCH ×2 (07:22→20:01)
[2017-07-01] MEDS: Cholecalciferol (Vitamin D3) 1,000 Unit Tab PO SCH (07:22)
[2017-07-01] MEDS: Acetaminophen 500 MG Tab PO PRN ×2 (10:17→20:01)
[2017-07-01] MEDS: Sertraline 25 MG Tab PO SCH (20:01)
[2017-07-02] MEDS: traMADol 50 MG Tab PO PRN (01:02)
[2017-07-02] MEDS: Levothyroxine 100 MCG Tab PO SCH (07:00)
[2017-07-02] MEDS: Cholecalciferol (Vitamin D3) 1,000 Unit Tab PO SCH (08:02)
[2017-07-02] MEDS: Aspirin 81 MG Tab.Chew PO SCH ×2 (08:02→19:42)
[2017-07-02] MEDS: Acetaminophen 500 MG Tab PO PRN ×2 (12:54→19:41)
[2017-07-02] MEDS: Sertraline 25 MG Tab PO SCH (19:41)
[2017-07-03] MEDS: Levothyroxine 100 MCG Tab PO SCH (06:43)
[2017-07-03] MEDS: Aspirin 81 MG Tab.Chew PO SCH ×2 (08:15→19:26)
[2017-07-03] MEDS: Cholecalciferol (Vitamin D3) 1,000 Unit Tab PO SCH (08:15)
[2017-07-03] MEDS: Acetaminophen 500 MG Tab PO PRN ×2 (14:20→20:41)
[2017-07-03] MEDS: Sertraline 25 MG Tab PO SCH (19:27)
[2017-07-04] MEDS: traMADol 50 MG Tab PO PRN (00:30)
[2017-07-04] MEDS: Aspirin 81 MG Tab.Chew PO SCH ×2 (08:02→19:48)
[2017-07-04] MEDS: Levothyroxine 100 MCG Tab PO SCH (08:03)
[2017-07-04] MEDS: Cholecalciferol (Vitamin D3) 1,000 Unit Tab PO SCH (08:03)
[2017-07-04] MEDS: Acetaminophen 500 MG Tab PO PRN (17:14)
[2017-07-04] MEDS: Sertraline 25 MG Tab PO SCH (19:48)
[2017-07-05] MEDS: Acetaminophen 500 MG Tab PO PRN
[2017-07-05] MEDS: Levothyroxine 100 MCG Tab PO SCH (06:55)
[2017-07-05] MEDS: Aspirin 81 MG Tab.Chew PO SCH ×2 (07:57→20:10)
[2017-07-05] MEDS: Cholecalciferol (Vitamin D3) 1,000 Unit Tab PO SCH (07:58)
[2017-07-05] MEDS: Sertraline 25 MG Tab PO SCH (20:10)
[2017-07-06] MEDS: Levothyroxine 100 MCG Tab PO SCH (05:59)
[2017-07-06] MEDS: Cholecalciferol (Vitamin D3) 1,000 Unit Tab PO SCH (07:14)
[2017-07-06] MEDS: Aspirin 81 MG Tab.Chew PO SCH ×2 (07:14→20:29)
[2017-07-06] MEDS: Sertraline 25 MG Tab PO SCH (20:29)
[2017-07-06] MEDS: Acetaminophen 500 MG Tab PO PRN (22:09)
[2017-07-07] MEDS: Levothyroxine 100 MCG Tab PO SCH (06:45)
[2017-07-07] MEDS: Cholecalciferol (Vitamin D3) 1,000 Unit Tab PO SCH (08:34)
[2017-07-07] MEDS: Aspirin 81 MG Tab.Chew PO SCH ×2 (08:35→20:14)
[2017-07-07] MEDS: Sertraline 25 MG Tab PO SCH (20:14)
[2017-07-08] MEDS: Acetaminophen 500 MG Tab PO PRN (03:02)
[2017-07-08] MEDS: Levothyroxine 100 MCG Tab PO SCH (06:37)
[2017-07-08] MEDS: Aspirin 81 MG Tab.Chew PO SCH ×2 (08:16→20:01)
[2017-07-08] MEDS: Cholecalciferol (Vitamin D3) 1,000 Unit Tab PO SCH (08:16)
[2017-07-08] MEDS: Sertraline 25 MG Tab PO SCH (20:01)
[2017-07-09] MEDS: Levothyroxine 100 MCG Tab PO SCH (06:33)
[2017-07-09] MEDS: Cholecalciferol (Vitamin D3) 1,000 Unit Tab PO SCH (07:23)
[2017-07-09] MEDS: Aspirin 81 MG Tab.Chew PO SCH ×2 (07:23→19:41)
[2017-07-09] MEDS: Acetaminophen 500 MG Tab PO PRN (19:42)
[2017-07-09] MEDS: Sertraline 25 MG Tab PO SCH (19:42)
[2017-07-10] MEDS: Levothyroxine 100 MCG Tab PO SCH (06:41)
[2017-07-10] MEDS: Aspirin 81 MG Tab.Chew PO SCH ×2 (08:20→21:27)
[2017-07-10] MEDS: Cholecalciferol (Vitamin D3) 1,000 Unit Tab PO SCH (08:20)
[2017-07-10] MEDS: Acetaminophen 500 MG Tab PO PRN (18:31)
[2017-07-10] MEDS: Sertraline 25 MG Tab PO SCH (21:27)
[2017-07-10] MEDS: traMADol 50 MG Tab PO PRN (21:27)
[2017-07-11] MEDS: Acetaminophen 500 MG Tab PO PRN ×2 (01:49→20:23)
[2017-07-11] MEDS: Levothyroxine 100 MCG Tab PO SCH (06:21)
[2017-07-11] MEDS: Aspirin 81 MG Tab.Chew PO SCH ×2 (08:40→20:23)
[2017-07-11] MEDS: Cholecalciferol (Vitamin D3) 1,000 Unit Tab PO SCH (08:52)
[2017-07-11] MEDS: Sertraline 25 MG Tab PO SCH (20:23)
[2017-07-12] MEDS: Levothyroxine 100 MCG Tab PO SCH (06:42)
[2017-07-12] MEDS: Aspirin 81 MG Tab.Chew PO SCH ×2 (08:41→19:07)
[2017-07-12] MEDS: Cholecalciferol (Vitamin D3) 1,000 Unit Tab PO SCH (08:45)
[2017-07-12] MEDS: Sertraline 25 MG Tab PO SCH (19:07)
[2017-07-13] MEDS: Cholecalciferol (Vitamin D3) 1,000 Unit Tab PO SCH (07:05)
[2017-07-13] MEDS: Aspirin 81 MG Tab.Chew PO SCH ×2 (07:05→20:01)
[2017-07-13] MEDS: Levothyroxine 100 MCG Tab PO SCH (07:05)
[2017-07-13] MEDS: Sertraline 25 MG Tab PO SCH (20:01)
[2017-07-14] MEDS: Levothyroxine 100 MCG Tab PO SCH (07:29)
[2017-07-14] MEDS: Cholecalciferol (Vitamin D3) 1,000 Unit Tab PO SCH (07:29)
[2017-07-14] MEDS: Aspirin 81 MG Tab.Chew PO SCH ×2 (07:29→20:05)
[2017-07-14] MEDS: Sertraline 25 MG Tab PO SCH (20:05)
[2017-07-15] MEDS: Levothyroxine 100 MCG Tab PO SCH (06:11)
[2017-07-15] MEDS: Aspirin 81 MG Tab.Chew PO SCH ×2 (07:51→20:08)
[2017-07-15] MEDS: Cholecalciferol (Vitamin D3) 1,000 Unit Tab PO SCH (07:51)
[2017-07-15] MEDS: Sertraline 25 MG Tab PO SCH (20:07)
[2017-07-16] MEDS: Levothyroxine 100 MCG Tab PO SCH (06:52)
[2017-07-16] MEDS: Aspirin 81 MG Tab.Chew PO SCH ×2 (08:32→19:54)
[2017-07-16] MEDS: Cholecalciferol (Vitamin D3) 1,000 Unit Tab PO SCH (08:32)
[2017-07-16] MEDS: Acetaminophen 500 MG Tab PO PRN (12:39)
[2017-07-16] MEDS: Sertraline 25 MG Tab PO SCH (19:54)
[2017-07-17] MEDS: Levothyroxine 100 MCG Tab PO SCH (06:25)
[2017-07-17] MEDS: Cholecalciferol (Vitamin D3) 1,000 Unit Tab PO SCH (08:06)
[2017-07-17] MEDS: Aspirin 81 MG Tab.Chew PO SCH ×2 (08:06→20:21)
[2017-07-17] MEDS: Acetaminophen 500 MG Tab PO PRN (16:05)
[2017-07-17] MEDS: Sertraline 25 MG Tab PO SCH (20:21)
[2017-07-18] MEDS: Levothyroxine 100 MCG Tab PO SCH (06:46)
[2017-07-18] MEDS: Aspirin 81 MG Tab.Chew PO SCH ×2 (07:48→19:52)
[2017-07-18] MEDS: Cholecalciferol (Vitamin D3) 1,000 Unit Tab PO SCH (07:49)
[2017-07-18] MEDS: Acetaminophen 500 MG Tab PO PRN (07:50)
[2017-07-18] MEDS: Sertraline 25 MG Tab PO SCH (19:52)
[2017-07-19] MEDS: Levothyroxine 100 MCG Tab PO SCH (06:48)
[2017-07-19] MEDS: Cholecalciferol (Vitamin D3) 1,000 Unit Tab PO SCH (07:57)
[2017-07-19] MEDS: Aspirin 81 MG Tab.Chew PO SCH ×2 (07:57→20:21)
[2017-07-19] MEDS: Sertraline 25 MG Tab PO SCH (20:21)
[2017-07-20] MEDS: Aspirin 81 MG Tab.Chew PO SCH ×2 (07:03→19:31)
[2017-07-20] MEDS: Levothyroxine 100 MCG Tab PO SCH (07:03)
[2017-07-20] MEDS: Cholecalciferol (Vitamin D3) 1,000 Unit Tab PO SCH (07:03)
[2017-07-20] MEDS: Sertraline 25 MG Tab PO SCH (19:31)
[2017-07-21] MEDS: Cholecalciferol (Vitamin D3) 1,000 Unit Tab PO SCH (07:25)
[2017-07-21] MEDS: Levothyroxine 100 MCG Tab PO SCH (07:25)
[2017-07-21] MEDS: Aspirin 81 MG Tab.Chew PO SCH ×2 (07:25→19:30)
[2017-07-21] MEDS: Sertraline 25 MG Tab PO SCH (19:30)
[2017-07-22] MEDS: Levothyroxine 100 MCG Tab PO SCH (06:41)
[2017-07-22] MEDS: Aspirin 81 MG Tab.Chew PO SCH ×2 (07:42→20:19)
[2017-07-22] MEDS: Cholecalciferol (Vitamin D3) 1,000 Unit Tab PO SCH (07:42)
[2017-07-22] MEDS: Sertraline 25 MG Tab PO SCH (20:19)
[2017-07-23] MEDS: Aspirin 81 MG Tab.Chew PO SCH ×2 (07:33→19:46)
[2017-07-23] MEDS: Cholecalciferol (Vitamin D3) 1,000 Unit Tab PO SCH (07:33)
[2017-07-23] MEDS: Levothyroxine 100 MCG Tab PO SCH (07:33)
[2017-07-23] MEDS: Sertraline 25 MG Tab PO SCH (19:46)
[2017-07-24] MEDS: Levothyroxine 100 MCG Tab PO SCH (06:58)
[2017-07-24] MEDS: Aspirin 81 MG Tab.Chew PO SCH ×2 (07:29→21:04)
[2017-07-24] MEDS: Cholecalciferol (Vitamin D3) 1,000 Unit Tab PO SCH (07:29)
[2017-07-24] MEDS: Sertraline 25 MG Tab PO SCH (21:04)
[2017-07-25] MEDS: Levothyroxine 100 MCG Tab PO SCH (07:45)
[2017-07-25] MEDS: Aspirin 81 MG Tab.Chew PO SCH ×2 (07:45→19:32)
[2017-07-25] MEDS: Cholecalciferol (Vitamin D3) 1,000 Unit Tab PO SCH (07:45)
--- NOTE | 2017-07-25 11:32 | PN ---
Irina Tate is in for a 14-day recertification, status post severe fracture tib-fib, right lower extremity. So need to stay here in swing bed PT. MASON/NICOLE /[phone]
[2017-07-25] MEDS: Sertraline 25 MG Tab PO SCH (19:32)
[2017-07-26] MEDS: Aspirin 81 MG Tab.Chew PO SCH ×2 (11:08→19:44)
[2017-07-26] MEDS: Levothyroxine 100 MCG Tab PO SCH (11:08)
[2017-07-26] MEDS: Cholecalciferol (Vitamin D3) 1,000 Unit Tab PO SCH (11:09)
[2017-07-26] MEDS: Sertraline 25 MG Tab PO SCH (19:44)
[2017-07-27] MEDS: Acetaminophen 500 MG Tab PO PRN (00:33)
[2017-07-27] MEDS: Levothyroxine 100 MCG Tab PO SCH (06:54)
[2017-07-27] MEDS: Cholecalciferol (Vitamin D3) 1,000 Unit Tab PO SCH (07:21)
[2017-07-27] MEDS: Aspirin 81 MG Tab.Chew PO SCH ×2 (07:21→19:25)
[2017-07-27] MEDS: Sertraline 25 MG Tab PO SCH (19:26)
[2017-07-28] MEDS: Levothyroxine 100 MCG Tab PO SCH (06:47)
[2017-07-28] MEDS: Cholecalciferol (Vitamin D3) 1,000 Unit Tab PO SCH (07:33)
[2017-07-28] MEDS: Aspirin 81 MG Tab.Chew PO SCH ×2 (07:33→20:17)
[2017-07-28] MEDS: Sertraline 25 MG Tab PO SCH (20:17)
[2017-07-29] MEDS: Levothyroxine 100 MCG Tab PO SCH (08:21)
[2017-07-29] MEDS: Cholecalciferol (Vitamin D3) 1,000 Unit Tab PO SCH (08:21)
[2017-07-29] MEDS: Aspirin 81 MG Tab.Chew PO SCH ×2 (08:22→20:00)
[2017-07-29] MEDS: Sertraline 25 MG Tab PO SCH (20:00)
[2017-07-30] MEDS: Acetaminophen 500 MG Tab PO PRN ×3 (04:30→22:09)
[2017-07-30] MEDS: Levothyroxine 100 MCG Tab PO SCH (06:02)
[2017-07-30] MEDS: Cholecalciferol (Vitamin D3) 1,000 Unit Tab PO SCH (07:16)
[2017-07-30] MEDS: Aspirin 81 MG Tab.Chew PO SCH ×2 (07:16→19:01)
[2017-07-30] MEDS: Sertraline 25 MG Tab PO SCH (19:01)
[2017-07-31] MEDS: Levothyroxine 100 MCG Tab PO SCH (06:54)
[2017-07-31] MEDS: Acetaminophen 500 MG Tab PO PRN ×3 (08:08→22:54)
[2017-07-31] MEDS: Aspirin 81 MG Tab.Chew PO SCH ×2 (08:09→19:11)
[2017-07-31] MEDS: Cholecalciferol (Vitamin D3) 1,000 Unit Tab PO SCH (08:09)
[2017-07-31] MEDS: Sertraline 25 MG Tab PO SCH (19:11)
[2017-08-01] MEDS: Levothyroxine 100 MCG Tab PO SCH (06:41)
[2017-08-01] MEDS: Aspirin 81 MG Tab.Chew PO SCH ×2 (08:06→19:36)
[2017-08-01] MEDS: Cholecalciferol (Vitamin D3) 1,000 Unit Tab PO SCH (08:06)
[2017-08-01] MEDS: Sertraline 25 MG Tab PO SCH (19:36)
[2017-08-01] MEDS: Acetaminophen 500 MG Tab PO PRN (19:36)
[2017-08-02] MEDS: Acetaminophen 500 MG Tab PO PRN ×3 (01:28→23:08)
[2017-08-02] MEDS: Aspirin 81 MG Tab.Chew PO SCH ×2 (08:02→19:38)
[2017-08-02] MEDS: Cholecalciferol (Vitamin D3) 1,000 Unit Tab PO SCH (08:02)
[2017-08-02] MEDS: Levothyroxine 100 MCG Tab PO SCH (08:03)
[2017-08-02] MEDS: Sertraline 25 MG Tab PO SCH (19:38)
[2017-08-03] MEDS: Levothyroxine 100 MCG Tab PO SCH (06:11)
[2017-08-03] MEDS: Cholecalciferol (Vitamin D3) 1,000 Unit Tab PO SCH (08:02)
[2017-08-03] MEDS: Aspirin 81 MG Tab.Chew PO SCH ×2 (08:02→19:26)
[2017-08-03] MEDS: Sertraline 25 MG Tab PO SCH (19:26)
[2017-08-04] MEDS: Levothyroxine 100 MCG Tab PO SCH (06:18)
[2017-08-04] MEDS: Aspirin 81 MG Tab.Chew PO SCH ×2 (08:34→19:56)
[2017-08-04] MEDS: Cholecalciferol (Vitamin D3) 1,000 Unit Tab PO SCH (08:34)
[2017-08-04] MEDS: Sertraline 25 MG Tab PO SCH (19:56)
[2017-08-04] MEDS: Acetaminophen 500 MG Tab PO PRN (19:56)
[2017-08-05] MEDS: Levothyroxine 100 MCG Tab PO SCH (06:19)
[2017-08-05] MEDS: Aspirin 81 MG Tab.Chew PO SCH ×2 (07:49→20:05)
[2017-08-05] MEDS: Cholecalciferol (Vitamin D3) 1,000 Unit Tab PO SCH (07:50)
[2017-08-05] MEDS: Sertraline 25 MG Tab PO SCH (20:05)
[2017-08-06] MEDS: Levothyroxine 100 MCG Tab PO SCH (06:27)
[2017-08-06] MEDS: Cholecalciferol (Vitamin D3) 1,000 Unit Tab PO SCH (07:06)
[2017-08-06] MEDS: Aspirin 81 MG Tab.Chew PO SCH ×2 (07:06→19:19)
[2017-08-06] MEDS: Acetaminophen 500 MG Tab PO PRN (13:15)
[2017-08-06] MEDS: Sertraline 25 MG Tab PO SCH (19:19)
[2017-08-07] MEDS: Cholecalciferol (Vitamin D3) 1,000 Unit Tab PO SCH (07:32)
[2017-08-07] MEDS: Aspirin 81 MG Tab.Chew PO SCH ×2 (07:32→19:23)
[2017-08-07] MEDS: Levothyroxine 100 MCG Tab PO SCH (07:33)
[2017-08-07] MEDS: Sertraline 25 MG Tab PO SCH (19:23)
[2017-08-08] MEDS: Levothyroxine 100 MCG Tab PO SCH (07:34)
[2017-08-08] MEDS: Aspirin 81 MG Tab.Chew PO SCH ×2 (07:34→19:48)
[2017-08-08] MEDS: Cholecalciferol (Vitamin D3) 1,000 Unit Tab PO SCH (07:34)
[2017-08-08] MEDS: Sertraline 25 MG Tab PO SCH (19:47)
[2017-08-09] MEDS: Cholecalciferol (Vitamin D3) 1,000 Unit Tab PO SCH (07:35)
[2017-08-09] MEDS: Aspirin 81 MG Tab.Chew PO SCH ×2 (07:35→19:50)
[2017-08-09] MEDS: Levothyroxine 100 MCG Tab PO SCH (07:35)
[2017-08-09] MEDS: Sertraline 25 MG Tab PO SCH (19:49)
[2017-08-10] MEDS: Levothyroxine 100 MCG Tab PO SCH (06:08)
[2017-08-10] MEDS: Cholecalciferol (Vitamin D3) 1,000 Unit Tab PO SCH (07:50)
[2017-08-10] MEDS: Aspirin 81 MG Tab.Chew PO SCH ×2 (07:51→19:44)
[2017-08-10] MEDS: Sertraline 25 MG Tab PO SCH (19:44)
[2017-08-11] MEDS: Levothyroxine 100 MCG Tab PO SCH (06:06)
[2017-08-11] MEDS: Aspirin 81 MG Tab.Chew PO SCH ×2 (07:18→19:31)
[2017-08-11] MEDS: Cholecalciferol (Vitamin D3) 1,000 Unit Tab PO SCH (07:18)
[2017-08-11] MEDS: Sertraline 25 MG Tab PO SCH (19:31)
[2017-08-12] MEDS: Levothyroxine 100 MCG Tab PO SCH (06:42)
[2017-08-12] MEDS: Cholecalciferol (Vitamin D3) 1,000 Unit Tab PO SCH (07:57)
[2017-08-12] MEDS: Aspirin 81 MG Tab.Chew PO SCH ×2 (07:57→19:49)
[2017-08-12] MEDS: Sertraline 25 MG Tab PO SCH (19:50)
[2017-08-13] MEDS: Aspirin 81 MG Tab.Chew PO SCH ×2 (07:30→19:41)
[2017-08-13] MEDS: Cholecalciferol (Vitamin D3) 1,000 Unit Tab PO SCH (07:30)
[2017-08-13] MEDS: Levothyroxine 100 MCG Tab PO SCH (07:30)
[2017-08-13] MEDS: Sertraline 25 MG Tab PO SCH (19:40)
[2017-08-14] MEDS: Levothyroxine 100 MCG Tab PO SCH (07:05)
[2017-08-14] MEDS: Aspirin 81 MG Tab.Chew PO SCH ×2 (07:05→19:22)
[2017-08-14] MEDS: Cholecalciferol (Vitamin D3) 1,000 Unit Tab PO SCH (07:05)
[2017-08-14] MEDS: Sertraline 25 MG Tab PO SCH (19:23)
[2017-08-15] MEDS: Levothyroxine 100 MCG Tab PO SCH (06:15)
[2017-08-15] MEDS: Aspirin 81 MG Tab.Chew PO SCH ×2 (07:31→19:59)
[2017-08-15] MEDS: Cholecalciferol (Vitamin D3) 1,000 Unit Tab PO SCH (07:31)
[2017-08-15] MEDS: Sertraline 25 MG Tab PO SCH (19:59)
[2017-08-16] MEDS: Levothyroxine 100 MCG Tab PO SCH (06:24)
[2017-08-16] MEDS: Aspirin 81 MG Tab.Chew PO SCH ×2 (07:14→19:45)
[2017-08-16] MEDS: Cholecalciferol (Vitamin D3) 1,000 Unit Tab PO SCH (07:14)
[2017-08-16] MEDS: Sertraline 25 MG Tab PO SCH (19:45)
[2017-08-16] MEDS: Acetaminophen 500 MG Tab PO PRN (21:57)
[2017-08-17] MEDS: Levothyroxine 100 MCG Tab PO SCH (06:14)
[2017-08-17] MEDS: Cholecalciferol (Vitamin D3) 1,000 Unit Tab PO SCH (07:02)
[2017-08-17] MEDS: Aspirin 81 MG Tab.Chew PO SCH ×2 (07:03→19:52)
[2017-08-17] MEDS: Sertraline 25 MG Tab PO SCH (19:52)
[2017-08-18] MEDS: Levothyroxine 100 MCG Tab PO SCH (06:03)
[2017-08-18] MEDS: Cholecalciferol (Vitamin D3) 1,000 Unit Tab PO SCH (07:42)
[2017-08-18] MEDS: Aspirin 81 MG Tab.Chew PO SCH ×2 (07:42→19:47)
[2017-08-18] MEDS: Sertraline 25 MG Tab PO SCH (19:47)
[2017-08-19] MEDS: Levothyroxine 100 MCG Tab PO SCH (06:09)
[2017-08-19] MEDS: Cholecalciferol (Vitamin D3) 1,000 Unit Tab PO SCH (07:55)
[2017-08-19] MEDS: Aspirin 81 MG Tab.Chew PO SCH ×2 (07:55→19:42)
[2017-08-19] MEDS: Sertraline 25 MG Tab PO SCH (19:42)
[2017-08-20] MEDS: Levothyroxine 100 MCG Tab PO SCH (06:32)
[2017-08-20] MEDS: Cholecalciferol (Vitamin D3) 1,000 Unit Tab PO SCH (08:09)
[2017-08-20] MEDS: Aspirin 81 MG Tab.Chew PO SCH ×2 (08:09→19:21)
[2017-08-20] MEDS: Sertraline 25 MG Tab PO SCH (19:21)
[2017-08-21] MEDS: Levothyroxine 100 MCG Tab PO SCH (06:17)
[2017-08-21] MEDS: Cholecalciferol (Vitamin D3) 1,000 Unit Tab PO SCH (08:41)
[2017-08-21] MEDS: Aspirin 81 MG Tab.Chew PO SCH ×2 (08:41→19:15)
[2017-08-21] MEDS: Sertraline 25 MG Tab PO SCH (19:15)
[2017-08-22] MEDS: Levothyroxine 100 MCG Tab PO SCH (06:19)
[2017-08-22] MEDS: Cholecalciferol (Vitamin D3) 1,000 Unit Tab PO SCH (07:37)
[2017-08-22] MEDS: Aspirin 81 MG Tab.Chew PO SCH ×2 (07:37→19:27)
[2017-08-22] MEDS: Sertraline 25 MG Tab PO SCH (19:27)
[2017-08-23] MEDS: Levothyroxine 100 MCG Tab PO SCH (06:03)
[2017-08-23] MEDS: Cholecalciferol (Vitamin D3) 1,000 Unit Tab PO SCH (07:43)
[2017-08-23] MEDS: Aspirin 81 MG Tab.Chew PO SCH ×2 (07:43→20:26)
[2017-08-23] MEDS: Acetaminophen 500 MG Tab PO PRN (14:36)
[2017-08-23] MEDS: Sertraline 25 MG Tab PO SCH (20:26)
[2017-08-24] MEDS: Levothyroxine 100 MCG Tab PO SCH (06:37)
[2017-08-24] MEDS: Aspirin 81 MG Tab.Chew PO SCH ×2 (07:32→19:27)
[2017-08-24] MEDS: Cholecalciferol (Vitamin D3) 1,000 Unit Tab PO SCH (07:32)
[2017-08-24] MEDS: Sertraline 25 MG Tab PO SCH (19:27)
[2017-08-25] MEDS: Levothyroxine 100 MCG Tab PO SCH (06:17)
--- NOTE | 2017-08-25 07:56 | PCM.PN ---
- General Info Date of Service: 08/25/17 Admission Dx/Problem (Free Text): Admission Diagnosis/Problem Admission Diagnosis/Problem Fracture of distal end of tibia Functional Status: Reports: Pain Controlled, Tolerating Diet, Ambulating, Urinating. Denies: New Symptoms - Patient Data Vitals - Most Recent: Last Vital Signs Temp 97.4 F 08/24/17 08:00 Pulse 75 08/24/17 08:00 Resp 16 08/24/17 08:00 BP 100/50 L 08/24/17 08:00 Pulse Ox 96 08/24/17 08:00 Weight - Most Recent: 222 lb 12.8 oz Lab Results Last 24 Hours: Laboratory Results - last 24 hr 08/24/17 Range/Units 07:00 TSH, Ultra Sensitive 1.32 (0.36-5.60) uIU/mL Med Orders - Current: Current Medications Acetaminophen (Tylenol Extra Strength) 1,000 mg PO Q6H PRN PRN Reason: Pain Last Admin: 08/23/17 14:36 Dose: 1,000 mg Aspirin (Aspirin) 81 mg PO BID [facility] Last Admin: 08/24/17 19:27 Dose: 81 mg Cholecalciferol (Vitamin D3) 2,000 units PO DAILY [facility] Last Admin: 08/24/17 07:32 Dose: 2,000 units Levothyroxine Sodium (Synthroid) 100 mcg PO 0700 [facility] Last Admin: 08/25/17 06:17 Dose: 100 mcg Sertraline HCl (Zoloft) 25 mg PO BEDTIME [facility] Last Admin: 08/24/17 19:27 Dose: 25 mg Tramadol HCl (Ultram) 25 mg PO Q6H PRN PRN Reason: Pain/Fever Last Admin: 07/10/17 21:27 Dose: 25 mg Discontinued Medications Azithromycin (Zithromax) 500 mg PO ONETIME ONE Stop: 06/03/17 14:53 Last Admin: 06/03/17 15:45 Dose: 500 mg Azithromycin (Zithromax) 250 mg PO DAILY@1500 [facility] Stop: 06/07/17 15:01 Last Admin: 06/07/17 15:09 Dose: 250 mg Influenza Virus Vaccine (Fluzone Quad [id number]) 60 mcg IM .ONCE ONE Stop: 05/26/17 14:13 Last Admin: 05/26/17 14:31 Dose: 60 mcg Iopamidol (Isovue-370 (76%)) 100 ml IVPUSH ONETIME ONE Stop: 06/03/17 10:45 Last Admin: 06/03/17 12:17 Dose: Not Given Levothyroxine Sodium (Synthroid) 88 mcg PO ACBREAKFAST [facility] Last Admin: 05/27/17 06:30 Dose: 88 mcg Morphine Sulfate (Morphine) 4 mg IM ONETIME ONE Stop: 05/29/17 13:10 Last Admin: 05/29/17 13:23 Dose: 4 mg Ondansetron HCl (Zofran Odt) 4 mg PO ONETIME ONE Stop: 05/29/17 13:12 Last Admin: 05/29/17 13:23 Dose: 4 mg Tramadol HCl (Ultram) 50 mg PO Q6H PRN PRN Reason: Pain Last Admin: 05/27/17 07:46 Dose: 50 mg Tramadol HCl (Ultram) 25 mg PO ONETIME ONE Stop: 05/31/17 17:31 Last Admin: 05/31/17 17:29 Dose: 25 mg - Problem List & Annotations (1) Down syndrome SNOMED Code(s): 43126756 Code(s): Q90.9 - DOWN SYNDROME, UNSPECIFIED Status: Chronic Current Visit : Yes (2) Hypothyroidism SNOMED Code(s): 80396681 Code(s): E03.9 - HYPOTHYROIDISM, UNSPECIFIED Status: Chronic Current Visit: Yes Qualifiers: Hypothyroidism type: unspecified Qualified Code(s): E03.9 - Hypothyroidism , unspecified (3) Fracture of tibia with fibula, closed SNOMED Code(s): 662529016 Code(s): S82.209A - UNSP FRACTURE OF SHAFT OF UNSP TIBIA, INIT FOR CLOS FX; S82.409A - UNSP FRACTURE OF SHAFT OF UNSP FIBULA, INIT FOR CLOS FX Status: Acute Priority: High Current Visit: No Qualifiers: Encounter type: initial encounter Laterality: right Qualified Code(s): S82.201A - Unspecified fracture of shaft of right tibia, initial encounter for closed fracture; S82.401A - Unspecified fracture of shaft of right fibula, initial encounter for closed fracture; S82.401A - Unspecified fracture of shaft of right fibula, initial encounter for closed fracture - Plan Plan:: This is a recertification visit. Patient must remain swing bed status as she will need to be non-weight bearing to her RLE. She has been switched to a CAm boot. She has down syndrome and may have difficulty comprehending non- weightbearing status. She has been doing well with NWB status. She will likely need to remain in swing bed for a total duration of 12 weeks, to allow for fracture/surgical site to heal completely. I estimate she will need to be here approximately another 8 weeks. She should be able to return home safely once she is able to bear weight on her RLE. Continue current cares. Continue with NWB status to RLE. PT following. Follow up as scheduled with orthopedics on August 04. Ortho recommendations per orthopedic surgery.
[2017-08-25] MEDS: Aspirin 81 MG Tab.Chew PO SCH ×2 (08:09→19:29)
[2017-08-25] MEDS: Cholecalciferol (Vitamin D3) 1,000 Unit Tab PO SCH (08:09)
[2017-08-25] MEDS: Acetaminophen 500 MG Tab PO PRN (08:13)
[2017-08-25] MEDS: Sertraline 25 MG Tab PO SCH (19:29)
[2017-08-26] MEDS: Levothyroxine 100 MCG Tab PO SCH (06:23)
[2017-08-26] MEDS: Aspirin 81 MG Tab.Chew PO SCH (08:02)
[2017-08-26] MEDS: Cholecalciferol (Vitamin D3) 1,000 Unit Tab PO SCH (08:02)
--- NOTE | 2017-08-26 08:12 | PCM.DCSUM1 ---
Discharge Summary - Discharge Data Discharge Date: 08/26/17 Discharge Disposition: Home, Self-Care 01 Condition: Good - Discharge Diagnosis/Problem(s) (1) Down syndrome SNOMED Code(s): 19297657 ICD Code: Q90.9 - DOWN SYNDROME, UNSPECIFIED Status: Chronic Current Visit: Yes (2) Hypothyroidism SNOMED Code(s): 24717753 ICD Code: E03.9 - HYPOTHYROIDISM, UNSPECIFIED Status: Chronic Current Visit: Yes Qualifiers: Hypothyroidism type: unspecified Qualified Code(s): E03.9 - Hypothyroidism , unspecified (3) Fracture of tibia with fibula, closed SNOMED Code(s): 538446725 ICD Code: S82.209A - UNSP FRACTURE OF SHAFT OF UNSP TIBIA, INIT FOR CLOS FX; S82.409A - UNSP FRACTURE OF SHAFT OF UNSP FIBULA, INIT FOR CLOS FX Status: Acute Priority: High Current Visit: No Qualifiers: Encounter type: initial encounter Laterality: right Qualified Code(s): S82.201A - Unspecified fracture of shaft of right tibia, initial encounter for closed fracture; S82.401A - Unspecified fracture of shaft of right fibula, initial encounter for closed fracture; S82.401A - Unspecified fracture of shaft of right fibula, initial encounter for closed fracture - Patient Summary/Data Consults: Consultations 05/26/17 14:03 PT Evaluation and Treatment [CONS] Routine - Patient Instructions Diet: Usual Diet as Tolerated Activity: As Tolerated Notify Provider of: Fever, Increased Pain, Swelling and Redness, Drainage - Discharge Plan Prescriptions/Med Rec: Levothyroxine [Synthroid] 100 mcg PO 0700 #90 tablet Sertraline [Zoloft] 25 mg PO BEDTIME #90 tablet Home Medications: Home Meds Cholecalciferol (Vitamin D3) [Vitamin D3] 2,000 mg PO DAILY 03/04/14 [History] Multivitamin [Gummi Bear Multivitamin] 1 each PO DAILY 05/26/17 [History] Levothyroxine [Synthroid] 100 mcg PO 0700 #90 tablet 08/26/17 [Rx] Sertraline [Zoloft] 25 mg PO BEDTIME #90 tablet 08/26/17 [Rx] Patient Handouts: Tibial and Fibular Fracture Referrals: Connor Zimmerman MD [Primary Care Provider] - - Patient Data Vitals - Most Recent: Last Vital Signs Temp 96.6 F 08/25/17 08:00 Pulse 98 08/25/17 08:00 Resp 20 08/25/17 08:00 BP 100/46 L 08/25/17 08:00 Pulse Ox 95 08/25/17 08:00 Weight - Most Recent: 222 lb 12.8 oz Med Orders - Current: Current Medications Acetaminophen (Tylenol Extra Strength) 1,000 mg PO Q6H PRN PRN Reason: Pain Last Admin: 08/25/17 08:13 Dose: 1,000 mg Aspirin (Aspirin) 81 mg PO BID [facility] Last Admin: 08/26/17 08:02 Dose: 81 mg Cholecalciferol (Vitamin D3) 2,000 units PO DAILY [facility] Last Admin: 08/26/17 08:02 Dose: 2,000 units Levothyroxine Sodium (Synthroid) 100 mcg PO 0700 [facility] Last Admin: 08/26/17 06:23 Dose: 100 mcg Sertraline HCl (Zoloft) 25 mg PO BEDTIME [facility] Last Admin: 08/25/17 19:29 Dose: 25 mg Tramadol HCl (Ultram) 25 mg PO Q6H PRN PRN Reason: Pain/Fever Last Admin: 07/10/17 21:27 Dose: 25 mg Discontinued Medications Azithromycin (Zithromax) 500 mg PO ONETIME ONE Stop: 06/03/17 14:53 Last Admin: 06/03/17 15:45 Dose: 500 mg Azithromycin (Zithromax) 250 mg PO DAILY@1500 [facility] Stop: 06/07/17 15:01 Last Admin: 06/07/17 15:09 Dose: 250 mg Influenza Virus Vaccine (Fluzone Quad [id number]) 60 mcg IM .ONCE ONE Stop: 05/26/17 14:13 Last Admin: 05/26/17 14:31 Dose: 60 mcg Iopamidol (Isovue-370 (76%)) 100 ml IVPUSH ONETIME ONE Stop: 06/03/17 10:45 Last Admin: 06/03/17 12:17 Dose: Not Given Levothyroxine Sodium (Synthroid) 88 mcg PO ACBREAKFAST [facility] Last Admin: 05/27/17 06:30 Dose: 88 mcg Morphine Sulfate (Morphine) 4 mg IM ONETIME ONE Stop: 05/29/17 13:10 Last Admin: 05/29/17 13:23 Dose: 4 mg Ondansetron HCl (Zofran Odt) 4 mg PO ONETIME ONE Stop: 05/29/17 13:12 Last Admin: 05/29/17 13:23 Dose: 4 mg Tramadol HCl (Ultram) 50 mg PO Q6H PRN PRN Reason: Pain Last Admin: 05/27/17 07:46 Dose: 50 mg Tramadol HCl (Ultram) 25 mg PO ONETIME ONE Stop: 05/31/17 17:31 Last Admin: 05/31/17 17:29 Dose: 25 mg
[2017-08-26 08:59] VITALS: BP 118/56
== END 2017-08-26 11:15 | disposition home or self-care (01) | DRG 560 ==
LOC: UNDOADMIN 12:34 → CC.MS 12:34
PROVIDERS: ADMIT General Practice; ATTEND General Practice
DX: S82.201D Unspecified fracture of shaft of right tibia, subsequent encounter for closed fracture with routine healing (principal); J21.9 Acute bronchiolitis, unspecified; S82.401D Unspecified fracture of shaft of right fibula, subsequent encounter for closed fracture with routine healing; W19.XXXD Unspecified fall, subsequent encounter; I50.9 Heart failure, unspecified; H54.7 Unspecified visual loss; R62.50 Unspecified lack of expected normal physiological development in childhood; Q90.9 Down syndrome, unspecified; E03.9 Hypothyroidism, unspecified; E66.9 Obesity, unspecified; D64.9 Anemia, unspecified; R79.1 Abnormal coagulation profile; Z88.8 Allergy status to other drugs, medicaments and biological substances; Z79.899 Other long term (current) drug therapy; Z87.440 Personal history of urinary (tract) infections
CPT/HCPCS: 36415; 71275; 80048; 81001; 82607; 82746; 83540; 83550; 83735; 84439; 84443; 85025; 85379; 90686; 97110-GP; 97162-GP; A9270-GY; G0008; J2270; Q9967

== ENCOUNTER 2022-05-01 19:15 | Emergency (ER) | payer MEDICARE, MEDICAID ==
[2022-05-01 19:27] VITALS: BP 127/62; PULSE 87
[2022-05-01] MEDS ORDERED: Bacitracin/Polymyxin B Ophth Oint 3.5 GM Tube EYEBOTH SCH (20:00)
== END 2022-05-01 19:45 | disposition home or self-care (01) ==
LOC: SUPCPDRO 19:15 → CC.ED 19:15
DX: H10.33 Unspecified acute conjunctivitis, bilateral (principal); E03.9 Hypothyroidism, unspecified; E66.9 Obesity, unspecified; Z68.42 Body mass index [BMI] 45.0-49.9, adult; Z88.8 Allergy status to other drugs, medicaments and biological substances; Z79.899 Other long term (current) drug therapy
CPT/HCPCS: 99283; A9270-GY

== ENCOUNTER 2022-08-22 12:24 | Emergency (ER) | payer MEDICARE, MEDICAID ==
[2022-08-22] MEDS ORDERED: Alum Hydrox/Mag Hydrox/Simeth 30 ML, Lidocaine 2% 15 ML PO ONE ×2 (13:29)
[2022-08-22] MEDS ORDERED: Iopamidol 755 Mg/ML 100 ML Bottle IVPUSH ONE (13:49)
[2022-08-22 15:53] VITALS: BP 108/70; PULSE 110
[2022-08-22] MEDS ORDERED: cefTRIAXone 1 GM Vial IVPUSH ONE (15:56)
[2022-08-22] MEDS ORDERED: Phenazopyridine 95 MG Tab PO STA (16:36)
== END 2022-08-22 17:12 | disposition home or self-care (01) ==
LOC: CC.ED 12:24
DX: N30.01 Acute cystitis with hematuria (principal); R33.9 Retention of urine, unspecified; E78.00 Pure hypercholesterolemia, unspecified; E03.9 Hypothyroidism, unspecified; E66.9 Obesity, unspecified; Z88.8 Allergy status to other drugs, medicaments and biological substances; Z79.899 Other long term (current) drug therapy; Z68.45 Body mass index [BMI] 70 or greater, adult
CPT/HCPCS: 36415; 51702; 74177; 80053; 81001; 85025; 86140; 87086; 96374; 99284; 99284-25; A9270-GY; J0696; Q9967

== ENCOUNTER 2024-06-27 18:19 | Emergency (ER) | payer MEDICAID, MEDICARE ==
[2024-06-27 18:23] VITALS: BP 190/86; PULSE 112
[2024-06-27] MEDS: LORazepam 2 MG/ML SDV IM ONE (18:24)
[2024-06-27] MEDS: Sulfamethoxazole/Trimethoprim 800-160 MG Tab PO ONE (19:32)
== END 2024-06-27 19:50 | disposition home or self-care (01) ==
LOC: CC.ED 18:19
DX: R33.9 Retention of urine, unspecified (principal); E03.9 Hypothyroidism, unspecified; E66.9 Obesity, unspecified; E78.00 Pure hypercholesterolemia, unspecified; Z88.8 Allergy status to other drugs, medicaments and biological substances; Z79.899 Other long term (current) drug therapy; Z79.890 Hormone replacement therapy; Z79.84 Long term (current) use of oral hypoglycemic drugs; Z68.42 Body mass index [BMI] 45.0-49.9, adult
CPT/HCPCS: 96372; 99283; A9270-GY; J2060